=== PATIENT | male | born 1980 | race Caucasian/White ===

== ENCOUNTER 2016-04-28 10:45 | Day surgery (SDC) | payer OTHER ==
[~2016-04-28] VITALS: Ht 177.8 cm; Wt 95.0 kg
[~2016-04-28 10:45] MED LIST: DOXY100T56 PO; ESOM40CA41 PO; MOME17SP NS; Sodium Chloride LOK Flush 10 mL Syringe IV PRN; fentaNYL-PF 50 mCg/mL 2 mL Inj IVPUSH PRN
[2016-04-28 11:04] VITALS: BP 130/80; PULSE 78; RESP 14; O2SAT 96
[2016-04-28] MEDS ORDERED: IBUP200C11 PO (11:17)
[2016-04-28] MEDS: 0.9% Sodium Chloride 1,000 ML IV SCH ×3 (11:55→12:19)
--- NOTE | 2016-04-28 12:23 | PCM.ENDCOL ---
Colonoscopy Date of Service: Apr 28, 2016 Physician Haseeb Campbell MD Pre Procedure Diagnosis: Diarrhea Post Procedure Dx & Findings: Hemorrhoids Procedure Colonoscopy PROCEDURE IN DETAIL: Prep adequate Withdrawal time 13 minutes After unremarkable rectal examination the Olympus video colonoscope was inserted patient's anal canal and was advanced to cecum. Landmarks were identified including the ileocecal valve and appendiceal orifice. Scope was withdrawn systematically. Visualized colonic mucosa showed healthy shiny mucosa with normal healthy-appearing vasculature. Scope Ma 10 cm as the terminal ileum which showed normal villous structures without any ulcer or mass erosion. We obtained random biopsies from the cecum to the rectum for workup of microscopic colitis. In the rectum retroflexion was done which showed hemorrhoids. Anal canal was inspected carefully on the way out and hemorrhoids noted. Impression Normal TI Normal colon Hemorrhoids Recommendation Repeat colonoscopy per guidelines. Follow-up with Dr. Bernal at the GI clinic Presedation Assessment Risks and Benefits Informed consent was obtained from the patient after all risks and benefits including but not limited to drug reaction, infection, pain, bleeding, perforation, as well as alternatives were discussed. Patient monitoring Continuous pulse oximetry, cardiac monitoring, blood pressure monitoring, IV access, and oxygen at 2L per nasal cannula. Periprocedural Fentanyl: Fentanyl 75mcg Incrementally Midazolam: Midazolam 4mg Incrementally Complications There were no periprocedural complications identified. Post Procedure Plan Post Procedure Recommendations 1. Restrict activities today. 2. Resume normal activities in the morning. 3. Resume medications. 4. Patient informed of normal post procedure side effects as bloating, drowsiness, blood streaking in the stool. 5. average risk CRCS. If colon polyps come back as: -Hyperplastic- can repeat colonoscopy in 10 years -Tubular adenoma- repeat colonoscopy in 5 years -Tubulovillous/villous adenoma- repeat colonoscopy in 3 years -If any dysplasia- return to clinic as soon as possible 6. Please don't hesitate to call me with any questions. Haseeb Campbell MD Apr 28, 2016 12:23
[2016-04-28 12:25] VITALS: BP 116/67; PULSE 72; RESP 14; O2SAT 96
[2016-04-28 12:45] VITALS: BP 113/60; PULSE 88; RESP 14; O2SAT 98
[2016-04-28 12:57] VITALS: BP 117/76; PULSE 72; RESP 16; O2SAT 99
--- NOTE | 2016-04-29 11:19 | PATH ---
SURGICAL PATHOLOGY Attending Physician:Haseeb Campbell M.D. CASE STATUS: Signed Out PATIENT NAME: ALMA TRIPLETT PID: [id number] : 1980 DATE COLLECTED:04/28/2016 20:14 SPECIMEN: Colon, Biopsy CLINICAL HISTORY: 1). RANDOM COLON BIOPSIES FINAL DIAGNOSIS: 1.RANDOM COLON BIOPSIES: FRAGMENTS OF NORMAL-APPEARING COLON MUCOSA. Negative for significant architectural distortion. Negative for significant inflammation, dysplasia and malignancy. ICD10 code R19.7 GROSS DESCRIPTION: The specimen is received in one formalin filled container labeled with the patient's name, sublabeled "random colon" and consists of multiple portions of tissue which aggregate to 0.4 x 0.4 x 0.3 CM. The specimen is entirely submitted in one cassette. 04/28/2016 [facility] MICRO DESCRIPTION: See diagnosis. ICD-9 CODES: CPT CODES: 1: 41887 Electronically Signed Out Jun Downs MD [facility] [address] [facility], [place] [address] Technical component performed at [facility], [facility] [address], [address]
== END 2016-04-28 23:59 | disposition home or self-care (01) ==
LOC: END 10:45
PROVIDERS: ATTEND Internal Medicine
DX: K64.9 Unspecified hemorrhoids (principal); R19.7 Diarrhea, unspecified; R10.31 Right lower quadrant pain; R31.29 Other microscopic hematuria; Z87.442 Personal history of urinary calculi
CPT/HCPCS: 45380; G0500; J2250; J3010; J7030